=== PATIENT | male | born 1945 | race Caucasian/White ===

== ENCOUNTER → 2016-06-14 | Outpatient (CLI) | payer MEDICARE, OTHER ==
[~2016-06-14] MED LIST: CYCL5TAB PO; HYDR-2666 PO; IOHEXOL 300 MG/ML 50 ML VIAL. IT ONE; LIDOCAINE 1% Multi-Dose 20 ML VIAL. ID ONE
--- NOTE | 2016-06-14 14:53 | KCIC ---
PROCEDURE Cervical myelogram. HISTORY Bilateral upper extremity numbness and tingling TECHNIQUE Patient was informed of the risks to include pain, infection, bleeding, nerve root injury, seizures, allergic reaction. All questions were answered. Patient signed a written consent form fora cervicalmyelogram.The patient was placed in a prone oblique position on the fluoroscopy table. External skin site of the lower back was prepped and draped in the usual sterile fashion. Betadine was utilized for cleansing solution. 1 percent lidocaine was utilized for local anesthesia at the anticipated site of puncture of the right L2-3 interlaminar space. A guiding needle was advanced into the soft tissues. Through the guiding needle, a 25 Krishan needle was advanced until return of cerebral spinal fluid. Ten cc [id number] injected during fluoroscopic visualization. [place] were removed. Patient was repositioned so as to allow for the flow of contrast into the cervical spine. Fluoroscopic spot images and lateral radiograph were acquired. There were no immediate complications. The patient was transferred to CT suite for CT examination. Fluoroscopy time, fluoroscopy images: Forty-four seconds,7 images FINDINGS There is multilevel cervical facet degenerative change. There was transient myelographic block at C4-5, resolved after patient having flex his neck. There is anterior extradural defect C4-C5. IMPRESSION 1. There is multilevel cervical facet degenerative change. 2. There was transient myelographic block at C4-5, resolved after patient flexed his neck. Electronically signed by: Avery King MD (Jun 14, 2016 14:51:57)
--- NOTE | 2016-06-14 15:23 | KCIC ---
PROCEDURE CT cervical spine exam HISTORY Bilateral upper extremity numbness and tingling, stenosis, symptoms for 6-[address] imaging was performed of the cervical spine after injection for the cervical myelogram, multiplanar reconstruction images submitted. Exposure: One or more of the following individualized dose reduction techniques were utilized for this exam: 1. Automated exposure control. 2. Adjustment of the mA and/or kV according to patient size. 3. Use of iterative reconstruction technique. COMPARISON January 09, 2016 outside facility MRI cervical spine exam FINDINGS There is old superior endplate compression deformity/Schmorl's node of T1 and mild superior endplate concavity of T2 as seen previously. Cervical vertebral body stature is adequate. There is negligible anterior spondylolisthesis at C3-C4, C4-5, and C6-7. Cervical cord caliber is within normal limits. There is no significant abnormality of the cervical medullary junction. There is mild degenerative disc disease at C5-C6 and C6-7. Atlantoaxial distance is within normal limits. There is adequate alignment of the lateral masses C1 relative to C2. Occipital condylar-C1 articulation is maintained. There is atherosclerotic calcification of the carotid arteries in the neck bilaterally. There is mild inferior cervical levoscoliosis. C2-C3: There is moderate to severe left facet degenerative change. There is mild left uncovertebral degenerative change. Combination of findings results in mild to moderate narrowing of the left neural foramen, right neural foramen adequate. Spinal canal is adequate. C3-C4: There is severe left and moderate to severe right facet degenerative change. There is mild uncovertebral degenerative change. There is fairly severe left and moderate to severe right neural foramina compromise. Central canal is minimally narrowed to 9 millimeters, shallow posterior central protrusion. C4-5: There is severe right greater than left facet hypertrophic change. There is mild right uncovertebral degenerative change. There is fairly severe narrowing of the right neural foramina, overall mild narrowing on the left. There is buckling of the ligamentum flavum. There is negligible posterior disc osteophyte complex. Central canal is minimally narrowed to approximately 8 millimeters. C5-C6: There is very severe right facet hypertrophic change. There is mild narrowing of the right neural foramina, left neural foramen adequate. Spinal canal is adequate. C6-7: Spinal canal is adequate. There is severe right greater than left facet degenerative change. There is mild to moderate narrowing of the right neural foramen, left neural foramen adequate. C7-T1: There is severe right greater than left facet degenerative change. Left neural foramina and spinal canal are adequate, moderate to severe narrowing of the right neural foramen. IMPRESSION 1. There is multilevel cervical facet hypertrophic change, multilevel mild uncovertebral degenerative change. There is multilevel cervical neural foramina compromise greatest bilaterally at C3-C4, on the right at C4-C5 and C7-T1, and to a lesser degree on the right at C6-7 and on the left at C2-3. 2. There is mild spinal stenosis C4-5 and C3-4. 3. There is mild abnormal alignment as stated. 4. There is mild degenerative disc disease C5-C6 and C6-7, minimal spondylosis. Electronically signed by: Avery King MD (Jun 14, 2016 15:22:00)
== END | disposition home or self-care (01) ==
LOC: KCIC 12:47
PROVIDERS: ATTEND Neurological Surgery
DX: M48.02 Spinal stenosis, cervical region (principal); M50.322 Other cervical disc degeneration at C5-C6 level; M50.323 Other cervical disc degeneration at C6-C7 level
CPT/HCPCS: 72126; 72240; Q9967